=== PATIENT | female | born 1940 | race Caucasian/White ===

== ENCOUNTER → 2017-01-11 | Day surgery (SDC) | payer OTHER ==
[2017-01-07 10:55] VITALS: BMI 21.0
[~2017-01-11] VITALS: Ht 167.6 cm; Wt 61.4 kg
[~2017-01-11] MED LIST: ASPI81TA28 PO; B-COTAB53 SL; CALC500C70 PO; COEN100C15 PO; ESCI1TAB6 PO; FLAX100025 PO; LIDOCAINE HCL 2% 2 ML VIAL (20MG/ML) ONE; MIDAZOLAM HCL 1 MG/ML 2ML VIAL ONE; MULT-612 PO; ONDANSETRON INJ 2 MG/ML 2 ML VIAL ONE; OXYB5TAB PO; PROB1TAB16 PO; PROPOFOL IV EMULSION 10 MG/ML 20 ML VIAL IV ONE; SODIUM CHLORIDE 0.9% 500ML 500 ML IV ONE; SUCR1TAB29 PO; [UNRECOGNIZED DRUG - CODE] PO
--- NOTE | 2017-01-11 08:33 | Endo History and Physical ---
History & Physical Date of Service: Jan 11, 2017. Chief Complaint: Epigastric pain, Nausea, GERD Referring Physician: Dr. Rivera History of Present Illness 76 yo CF who presents for EGD secondary to Epigastric abdominal pain, Nausea and GERD. Past Medical History Anxiety, Reflux Past Surgical History Hx Cardiac Surgery: No Hx Internal Defibrillator: No Hx Pacemaker: No Hx Abdominal Surgery: Yes (RONNI BSO, OLIVIA) Hx of Implantable Prosthesis: No Hx Post-Op Nausea and Vomiting: No Hx Cancer Surgery: No Hx Thoracic Surgery: No Hx Orthopedic: No Hx Urinary Tract Surgery: No Family History None Social History Smoking Status: Former Smoker Hx Substance Use: No Hx Alcohol Use: Yes (RARELY) Allergies Coded Allergies: Prochlorperazine (Verified Allergy, Severe, lock jaw, 01/11/17) Current Medications Reported Home Medications Medications Dose Route/Sig Max Daily Dose Days Date Category Carafate (Sucralfate) 1 Gm Tab 1 Gm PO QID 01/07/17 Reported Probiotic (Probiotic Product) 1 Tab Tab 1 Tab PO QPM 12/12/14 Reported Oxybutynin Chloride Er (Oxybutynin Chloride) 5 Mg Tab 5 Mg PO HS 12/12/14 Reported Flax Seed Oil (Flaxseed (Linseed)) 1 Cap Cap 1 Cap PO QPM 12/12/14 Reported Lanny-C (Bioflavonoid Products) 1 Tab Tab 1 Tab PO QPM 12/12/14 Reported Lexapro (Escitalopram Oxalate) 5 Mg Tab 5 Mg PO HS 12/12/14 Reported Co Q10 (Coenzyme Q10 (Ubidecarenone)) 100 Mg Cap 1 Cap PO QPM 12/12/14 Reported Centrum Ultra Womens (Multiple Vitamins W/ Minerals) 1 Tab Tab 1 Tab PO QPM 12/12/14 Reported Os-Shamar 500 Plus D (Calcium/Vitamin D) Tab 1 Tab PO TID 12/12/14 Reported Aspirin Ec (Aspirin) 81 Mg Tab 81 Mg PO HS 12/12/14 Reported Vital Signs Weight (Kilograms): 61.36 Height (Feet): 5 Height (Inches): 6.5 Physical Exam General Appearance: WD/WN, no apparent distress Respiratory/Chest: Auscultation: breath sounds normal Cardiovascular: Heart Auscultation: RRR Abdomen: Bowel Sounds: normal Inspection & Palpation: soft, non-distended, no tenderness, guarding & rebound Assessment and Plan Assessment: 76 yo CF who presents for EGD secondary to Epigastric abdominal pain, Nausea and GERD. Plan: Proceed with EGD.
[2017-01-11 08:35] VITALS: Ht 167.6 cm; Wt 61.4 kg
--- NOTE | 2017-01-11 09:09 | Discharge Instructions ---
Endoscopy Patient Instructions Date / Procedure(s) Performed Jan 11, 2017. EGD Allergy Information Coded Allergies: Prochlorperazine (Verified Allergy, Severe, lock jaw, 01/11/17) Discharge Date / Findings Jan 11, 2017. Esophageal varices Gastritis s/p biopsies Medication Instructions OK to resume all medications today as prescribed Reported Home Medications Medications Dose Route/Sig Max Daily Dose Days Date Category B Complex (B-Complex W/ Folic Acid) 1 Tab Tab 1 Tab SL QPM 01/07/17 Reported Carafate (Sucralfate) 1 Gm Tab 1 Gm PO QID 01/07/17 Reported Probiotic (Probiotic Product) 1 Tab Tab 1 Tab PO QPM 12/12/14 Reported Oxybutynin Chloride Er (Oxybutynin Chloride) 5 Mg Tab 5 Mg PO HS 12/12/14 Reported Flax Seed Oil (Flaxseed (Linseed)) 1 Cap Cap 1 Cap PO QPM 12/12/14 Reported Lanny-C (Bioflavonoid Products) 1 Tab Tab 1 Tab PO QPM 12/12/14 Reported Lexapro (Escitalopram Oxalate) 5 Mg Tab 5 Mg PO HS 12/12/14 Reported Co Q10 (Coenzyme Q10 (Ubidecarenone)) 100 Mg Cap 1 Cap PO QPM 12/12/14 Reported Centrum Ultra Womens (Multiple Vitamins W/ Minerals) 1 Tab Tab 1 Tab PO QPM 12/12/14 Reported Os-Shamar 500 Plus D (Calcium/Vitamin D) Tab 1 Tab PO TID 12/12/14 Reported Aspirin Ec (Aspirin) 81 Mg Tab 81 Mg PO HS 12/12/14 Reported Provider Instructions Activity Restrictions - No exercising or heavy lifting for 24 hours. - Do not drink alcohol the day of the procedure. - Do not drive a car or operate machinery until the day after the procedure. - Do not make any important decisions or sign important papers in 24 hours after the procedure. Following Day: - Return to full activity which may include returning to work/school. Diet Start your diet with liquids and light foods (jello, soup, juice, toast). Then eat your usual diet if not nauseated. Treatment For Common After Affects For mild abdominal pain, bloating, or excessive gas: - Rest - Eat lightly - Lie on right side Follow-Up Information Follow-up with DR. JEEVAN PARR as scheduled Anesthesia Information What You Should Know You have had a procedure that required some medicine to reduce anxiety and discomfort. This treatment is called moderate sedation. After receiving the treatment, you may be sleepy, but you will be able to breathe on your own. The effects of the treatment may last for several hours. Follow these instructions along with Activity/Diet recommendations noted above: * Do NOT do anything where dizziness or clumsiness would be dangerous. * Rest quietly at home today, then you can be up and about tomorrow. * Have a responsible person stay with you the rest of today. * You may have had an I.V. today. If so, you may take the dressing off later today. Recommendations Call your doctor if: * Trouble breathing * Continuous vomiting for more than 24 hours * Temperature above 101 degrees * Severe abdominal pain or bloating * Pain not relieved by pain medicine ordered * There is increased drainage or redness from any incision * A large amount of rectal bleeding greater than 2-3 tablespoons. (If you had a polyp/s removed or have hemorrhoids, a small amount of blood - from the rectum is to be expected.) * You have any unanswered questions or concerns. IN THE EVENT OF A SERIOUS EMERGENCY, GO TO THE NEAREST EMERGENCY ROOM Your discharge instructions were prepared by provider Rodney Flynn. Patient Instructions Signature Page Brit Casiano Patient (or Guardian) Signature/Date: I have read and understand the instructions given to me by my caregivers. Caregiver/RN/Doctor Signature/Date: The above-named patient and/or guardian has received patient instructions on this date. + Original Patient Signature Page (only) stays with chart. Please make copy for patient.
--- NOTE | 2017-01-11 09:14 | GI REPORT ---
Procedure Date: 01/11/2017 9:02 AM Procedure: Upper GI endoscopy Indications: Epigastric abdominal pain, Gastro-esophageal reflux disease, Nausea Medicines: Monitored Anesthesia Care Complications: No immediate complications. Estimated Blood Loss: Estimated blood loss: none. Procedure: Pre-Anesthesia Assessment: - Prior to the procedure, a History and Physical was performed, and patient medications and allergies were reviewed. The patient's tolerance of previous anesthesia was also reviewed. The risks and benefits of the procedure and the sedation options and risks were discussed with the patient. All questions were answered, and informed consent was obtained. Prior Anticoagulants: The patient has taken aspirin, last dose was 1 day prior to procedure. ASA Grade Assessment: II - A patient with mild systemic disease. After reviewing the risks and benefits, the patient was deemed in satisfactory condition to undergo the procedure. After obtaining informed consent, the endoscope was passed under direct vision. Throughout the procedure, the patient's blood pressure, pulse, and oxygen saturations were monitored continuously. The scope was introduced through the mouth, and advanced to the second part of duodenum. The upper GI endoscopy was accomplished without difficulty. The patient tolerated the procedure well. Findings: Grade I varices were found in the middle third of the esophagus. Localized mild inflammation characterized by erythema was found in the gastric antrum. Biopsies were taken with a cold forceps for histology. The examined duodenum was normal. Impression: - Grade I esophageal varices. - Gastritis. Biopsied. - Normal examined duodenum. Recommendation: - Resume previous diet. - Continue present medications. - Await pathology results. - Return to GI clinic as previously scheduled. - Perform a RUQ ultrasound at appointment to be scheduled. Rodney Flynn DO 01/11/2017 9:14:08 AM This report has been signed electronically. Note Initiated On: 01/11/2017 9:02 AM I attest to the content of the Intraoperative Record and orders documented therein, exceptions below
[2017-01-11 09:26] VITALS: BP 116/58; PULSE 55; O2SAT 96
--- NOTE | 2017-01-11 09:46 | Anesthesiology Progress Note ---
Anesthesia Post Op Note Date & Time Jan 11, 2017 at 09:45 Vital Signs Pain Intensity: 0 Vital Signs Past 12 Hours Date Time Temp Pulse Resp B/P Pulse Ox O2 Delivery O2 Flow Rate FiO2 01/11/17 09:26 55 16 116/58 96 Room Air 01/11/17 09:12 61 16 110/61 95 Room Air 01/11/17 08:44 36.8 58 20 125/71 98 Room Air Notes Mental Status: alert / awake / arousable, participated in evaluation Pt Amnestic to Procedure: Yes Nausea / Vomiting: adequately controlled Pain: adequately controlled Airway Patency, RR, SpO2: stable & adequate BP & HR: stable & adequate Hydration State: stable & adequate Anesthetic Complications: no major complications apparent
== END | disposition home or self-care (01) ==
LOC: C.GI 08:15
PROVIDERS: ATTEND Internal Medicine
DX: I85.00 Esophageal varices without bleeding (principal); K21.9 Gastro-esophageal reflux disease without esophagitis; K29.60 Other gastritis without bleeding; Z87.891 Personal history of nicotine dependence; Z90.710 Acquired absence of both cervix and uterus; Z90.722 Acquired absence of ovaries, bilateral; Z90.79 Acquired absence of other genital organ(s); Z79.82 Long term (current) use of aspirin

== ENCOUNTER → 2017-01-18 | Outpatient (CLI) | payer OTHER ==
[~2017-01-18] MED LIST changes: -LIDOCAINE HCL 2% 2 ML VIAL (20MG/ML) ONE; -MIDAZOLAM HCL 1 MG/ML 2ML VIAL ONE; -ONDANSETRON INJ 2 MG/ML 2 ML VIAL ONE; -PROPOFOL IV EMULSION 10 MG/ML 20 ML VIAL IV ONE; -SODIUM CHLORIDE 0.9% 500ML 500 ML IV ONE
--- NOTE | 2017-01-18 09:05 | DIAGNOSTIC IMAGING REPORT ---
ULTRASOUND RIGHT UPPER QUADRANT ABDOMEN CLINICAL HISTORY: Generalized abdominal pain. COMPARISON STUDY: No priors. TECHNIQUE: Real-time, grayscale, and color flow sonography of the right upper quadrant of the abdomen was performed. Images are reviewed in the transverse and longitudinal planes. FINDINGS: Liver: The liver is normal in size and slightly heterogeneous in echotexture. There is no intrahepatic biliary ductal dilatation. The main portal vein is patent. A 1.4 cm hepatic cyst is incidentally noted in the left lobe. Gallbladder: The gallbladder is normal in appearance. No gallstones are identified. There is no gallbladder wall thickening or pericholecystic fluid. A sonographic Copeland's sign is reportedly absent. The common bile duct measures up to 0.5 cm in diameter. Pancreas: Visualized portions of the pancreatic head and body are normal in appearance. The splenic vein is patent. Right kidney: Survey images of the right kidney demonstrate normal size and echotexture. There is no hydronephrosis. Ascites: None. IMPRESSION: No acute sonographic abnormality is seen in the right upper quadrant. No gallstones are identified. Electronically signed by: Cesar Sky M.D. 01/18/2017 9:03 AM Dictated Date/Time: 01/18/2017 9:01 AM
== END | disposition home or self-care (01) ==
LOC: C.ULTR 08:34
PROVIDERS: ATTEND Internal Medicine
DX: I85.00 Esophageal varices without bleeding (principal); R10.13 Epigastric pain

== ENCOUNTER → 2017-01-20 | Outpatient (CLI) | payer OTHER ==
[2017-01-20 15:09] LABS: BASO ABS # 0.05 K/uL (0-0.2); COMPLETE YES; EOS % 2.3 %; HEMATOCRIT 40.1 % (37-47); IG% 0.4 %; LYMPH % 26.6 %; LYMPH ABS # 1.39 K/uL (1.2-3.4); MEAN CELL VOLUME 86.4 fL (80-100); MEAN CORPUSCULAR HEMOGLOBIN 30.2 pg (25-34); MEAN CORPUSCULAR HGB CONC 34.9 g/dl (32-36); MEAN PLATELET VOLUME 8.6 fL (7.4-10.4); MONO % 7.6 %; NEUT % 62.1 %; PLATELET COUNT 216 K/uL (130-400); RED BLOOD COUNT 4.64 M/uL (4.2-5.4); WHITE BLOOD COUNT 5.23 K/uL (4.8-10.8)
[2017-01-20 15:39] LABS: BLOOD UREA NITROGEN 14 mg/dl (7-18); BUN/CREATININE RATIO 18.5 (10-20); CARBON DIOXIDE 29 mmol/L (21-32); CHLORIDE 107 mmol/L (98-107); CREATININE 0.78 mg/dl (0.60-1.20); GLUCOSE 87 mg/dl (70-99); POTASSIUM 3.9 mmol/L (3.5-5.1); PROTHROMBIN TIME (PATIENT) 10.3 SECONDS (9.0-12.0); SODIUM 142 mmol/L (136-145)
[2017-01-20 15:42] LABS: ALB/GLOB RATIO 1.2 (0.9-2); ALKALINE PHOSPHATASE 69 U/L (45-117); ALT/SGPT 23 U/L (12-78); AST/SGOT 16 U/L (15-37)
== END | disposition home or self-care (01) ==
LOC: C.LAB1850 14:22
PROVIDERS: ATTEND Registered Nurse
DX: I85.00 Esophageal varices without bleeding (principal)

== ENCOUNTER → 2017-03-22 | Outpatient (CLI) | payer OTHER ==
--- NOTE | 2017-03-22 14:43 | MAMMOGRAPHY REPORT ---
BILATERAL DIGITAL SCREENING MAMMOGRAM WITH CAD: 03/22/2017 CLINICAL HISTORY: Routine screening. Patient has no complaints. TECHNIQUE: Bilateral CC and MLO views were obtained. Current study was also evaluated with a Compute r Aided Detection (CAD) system. COMPARISON: Comparison is made to exams dated: 03/17/2016 mammogram, 02/18/2015 mammogram, 02/08/2014 mark mogram, 02/06/2013 mammogram, 01/17/2012 ultrasound, and 01/17/2012 mammogram - [facility] er. BREAST COMPOSITION: There are scattered areas of fibroglandular density in both breasts. FINDINGS: There are a few scattered benign round calcifications and minimal vascular calcification in the breasts. No suspicious mass, architectural distortion or cluster of suspicious microcalcificati ons is seen. IMPRESSION: ACR BI-RADS CATEGORY 1: NEGATIVE There is no mammographic evidence of malignancy. A 1 year screening mammogram is recommended. The pa tient will receive written notification of the results. Approximately 10% of breast cancers are not detected with mammography. A negative mammographic report should not delay biopsy if a clinically suggestive mass is present. Yeny Estes M.D. ay/:03/22/2017 13:43:23 [employer]: Ruth Ann MELGOZA(Dena)(Matt), [facility] letter sent: Normal 1/2 BI-RADS Code: ACR BI-RADS Category 1: Negative
== END | disposition home or self-care (01) ==
LOC: C.MAMM 12:57
PROVIDERS: ATTEND Internal Medicine
DX: Z12.31 Encounter for screening mammogram for malignant neoplasm of breast (principal)

== ENCOUNTER → 2017-04-05 | Outpatient (CLI) | payer OTHER ==
[2017-04-05 16:49] LABS: ALT/SGPT 23 U/L (12-78); BLOOD UREA NITROGEN 17 mg/dl (7-18); CALCIUM 9.4 mg/dl (8.5-10.1); CARBON DIOXIDE 30 mmol/L (21-32); CHLORIDE 105 mmol/L (98-107); CREATININE 0.85 mg/dl (0.60-1.20); GLUCOSE 95 mg/dl (70-99); MAGNESIUM 2.4 mg/dl (1.8-2.4); POTASSIUM 4.1 mmol/L (3.5-5.1); SODIUM 140 mmol/L (136-145)
[2017-04-05 16:52] LABS: ALB/GLOB RATIO 1.2 (0.9-2); ALKALINE PHOSPHATASE 64 U/L (45-117); AST/SGOT 15 U/L (15-37)
== END | disposition home or self-care (01) ==
LOC: C.LAB1850 15:34
PROVIDERS: ATTEND Internal Medicine
DX: R25.2 Cramp and spasm (principal)

== ENCOUNTER → 2017-05-06 | Outpatient (CLI) | payer OTHER ==
--- NOTE | 2017-05-06 13:01 | DIAGNOSTIC IMAGING REPORT ---
ULTRASOUND OF THE THYROID GLAND CLINICAL HISTORY: Multinodular goiter. COMPARISON STUDY: Thyroid ultrasound dated 04/23/2016. TECHNIQUE: Real-time, grayscale, and color flow sonography of the thyroid gland is performed utilizing a high-frequency linear transducer. Images are reviewed in the transverse and longitudinal planes. FINDINGS: Right lobe: The right lobe of the thyroid gland is normal in size and homogeneous in echotexture, measuring 4.8 x 2.2 x 2.5 cm. There are numerous thyroid nodules. A solid nodule containing a coarse calcification in the upper pole measures 1.8 x 1.3 x 1.3 cm (previously measured 1.7 x 1.2 x 1.4 cm). A nodule in the posterior midpole measures 1.4 x 0.7 x 1.5 cm (previously measured 1.5 x 0.6 x 1.0 cm). A nodule in the lower pole measures 0.5 0.6 x 0.7 cm (previously measured 0.8 x 0.8 x 0.7 cm). Left lobe: The left lobe of the thyroid gland is normal in size and homogeneous in echotexture, measuring 4.5 x 1.3 x 1.4 cm. A solid nodule in the midpole measures 1.2 x 0.7 x 1.0 cm (previously measured 1.2 x 0.7 x 0.7 cm). A honeycomb nodule in the lower pole measures 1.1 x 0.8 x 0.8 cm (previously measured 1.1 x 0.7 x 0.8 cm). Isthmus: The thyroid isthmus is normal in appearance and measures 0.2 cm in AP diameter. IMPRESSION: Multinodular thyroid gland as above, not significantly changed from 04/23/2016. Electronically signed by: Cesar Sky M.D. 05/06/2017 1:00 PM Dictated Date/Time: 05/06/2017 12:55 PM
[2017-05-06 14:26] LABS: THYROID STIMULATING HORMONE 0.546 uIu/ml (0.300-4.500)
== END | disposition home or self-care (01) ==
LOC: C.ULTR 12:04
PROVIDERS: ATTEND Internal Medicine
DX: E04.2 Nontoxic multinodular goiter (principal)

== ENCOUNTER → 2018-05-09 | Outpatient (CLI) | payer OTHER | END | disposition home or self-care (01) | LOC: C.LAB1850 14:57 | PROVIDERS: ATTEND Internal Medicine | DX: Z00.00 Encounter for general adult medical examination without abnormal findings (principal); E78.5 Hyperlipidemia, unspecified ==